=== PATIENT | male | born 1990 ===

== ENCOUNTER 2016-10-04 10:56 | Observation (INO) | payer MEDICAID ==
[2016-10-04 11:03] VITALS: BMI 20.3
[2016-10-04] MEDS ORDERED: Iohexol 240 (50 ml) PO ONE (11:30)
[2016-10-04] MEDS ORDERED: Sodium Chloride 0.9% 1,000 ML IV STA (11:30)
--- NOTE | 2016-10-04 11:35 | ED PDOC ---
HPI: Abdomen Time Seen by Provider: 10/04/16 11:11 Chief Complaint (Nursing): Abdominal Pain Chief Complaint (Provider): Abd pain History Per: Patient History/Exam Limitations: no limitations Onset/Duration Of Symptoms: Days (Today) Outside of [place] travel?: No Additional Complaint(s): RLQ pain on going since today morning. No back or testicular pain. No nausea, vomit, diarrhea. No weakness, headaches, chest pain. No dizziness. No dysuria. No new food or drinks. Past Medical History Reviewed: Nursing Documentation, Vital Signs Vital Signs: Last Vital Signs Temp 98.1 F 10/04/16 11:01 Pulse 94 H 10/04/16 11:01 Resp 20 10/04/16 11:01 BP 140/95 H 10/04/16 11:01 Pulse Ox 100 10/04/16 11:37 - Medical History PMH: No Chronic Diseases - Surgical History Surgical History: No Surg Hx - Family History Family History: States: Unknown Family Hx - Living Arrangements Living Arrangements: With Family - Social History Alcohol: None Drugs: Denies - Allergies Allergies/Adverse Reactions: Allergies Allergy/AdvReac Type Severity Reaction Status Date / Time No Known Allergies Allergy Verified 05/09/15 17:58 Review of Systems ROS Statement: Except As Marked, All Systems Reviewed And Found Negative Gastrointestinal: Positive for: Abdominal Pain Physical Exam - Reviewed Nursing Documentation Reviewed: Yes Vital Signs Reviewed: Yes - Physical Exam Appears: Positive for: Non-toxic, No Acute Distress Head Exam: Positive for: ATRAUMATIC, NORMAL INSPECTION, NORMOCEPHALIC Skin: Positive for: Normal Color, Warm, DRY Eye Exam: Positive for: EOMI, Normal appearance, PERRL ENT: Positive for: Normal ENT Inspection Neck: Positive for: Normal, Painless ROM Cardiovascular/Chest: Positive for: Regular Rate, Rhythm Respiratory: Positive for: CNT, Normal Breath Sounds Gastrointestinal/Abdominal: Positive for: Bowel Sounds, Soft, Tenderness (RLQ) Back: Positive for: Normal Inspection. Negative for: L CVA Tenderness, R CVA Tenderness Extremity: Positive for: Normal ROM. Negative for: Tenderness, Pedal Edema Neurologic/Psych: Positive for: Alert, Oriented - Laboratory Results Result Diagrams: 10/04/16 12:10 10/04/16 12:10 Interpretation Of Abn Labs: no acute Urine dip results: Negative for: Leukocyte Esterase, Nitrate - ECG O2 Sat by Pulse Oximetry: 100 Pulse Ox Interpretation: Normal - CT Scan/US ct Other Rad Studies (CT/US): Read By Radiologist Other Rad Interpretation: no acute ED OBSERVATION Discharge: Yes Date of observation admission: 10/04/16 Time of observation admission: 11:36 - Observation admission statement Patient is being placed in observation because:: abd pain - Goals of Observation Goals of observation are:: further eval for pain - Progress Note Progress Note: 10/04/16 17:26 Feels better. AAOx3. Pain free. Tolerated PO. FU with pcp. Disposition - Clinical Impression Clinical Impression: Abdominal pain - Patient ED Disposition Is Patient to be Admitted: No Counseled Patient/Family Regarding: Studies Performed, Diagnosis, Need For Followup, Rx Given - Disposition Disposition: Routine/Home Disposition Time: 17:26 Condition: STABLE
[2016-10-04 12:19] LABS: BASO % 0.3 % (0.0-2.0); EOS % 0.1 % (0.0-4.0); HEMOGLOBIN 15.7 g/dL (12.0-18.0); LYMPH # 1.4 K/uL (1.0-4.3); LYMPH % 12.7 % (20.0-40.0); MEAN CELL VOLUME 93.6 fl (80.0-94.0); MEAN CORPUSCULAR HEMOGLOBIN 32.3 pg (27.0-31.0); MEAN CORPUSCULAR HGB CONC 34.5 g/dL (33.0-37.0); MEAN PLATELET VOLUME 9.2 fl (7.2-11.7); MONO # 0.5 K/uL (0.0-0.8); MONO % 4.9 % (0.0-10.0); NEUT # 8.9 K/uL (1.8-7.0); NRBC % 0.2 % (0.0-0.0); RBC 4.85 Mil/uL (4.40-5.90); WHITE BLOOD COUNT 10.9 K/uL (4.8-10.8)
[2016-10-04 12:30] LABS: ALB/GLOB RATIO 1.5 (1.0-2.1); ALBUMIN 4.8 g/dL (3.5-5.0); ALT/SGPT 48 U/L (21-72); AST/SGOT 28 U/L (17-59); BLOOD UREA NITROGEN 16 mg/dl (9-20); CALCIUM 9.9 mg/dL (8.4-10.2); GFR AFRICAN-AMERICAN > 60; GFR NON-AFRICAN AMERICAN > 60; LIPASE 166 U/L (23-300)
[2016-10-04] MEDS ORDERED: Iohexol 300 100 ML IJ ONE (15:06)
[2016-10-04] MEDS ORDERED: Sodium Chloride 0.9% 50 ML IV ONE (15:07)
--- NOTE | 2016-10-04 17:18 | CT ---
PROCEDURE: CT Abdomen and Pelvis with contrast HISTORY: Abdominal pain and nausea. COMPARISON: None. TECHNIQUE: Contrast dose: Print Radiation dose: Total exam DLP = mGy-cm. This CT exam was performed using one or more of the following dose reduction techniques: Automated exposure control, adjustment of the mA and/or kV according to patient size, and/or use of iterative reconstruction technique. FINDINGS: LOWER THORAX: Unremarkable. LIVER: Unremarkable. No gross lesion or ductal dilatation. GALLBLADDER AND BILE DUCTS: Unremarkable. PANCREAS: Unremarkable. No gross lesion or ductal dilatation. SPLEEN: Unremarkable. ADRENALS: Unremarkable. No mass. KIDNEYS AND URETERS: Right kidney and right ureter: Unremarkable. No hydronephrosis. No solid mass. Left kidney in ureter: Moderately dilated left collecting system and left ureter in its entirety. Findings are nonspecific but may be related to ectopic ureterocele a normal variant. There is no obstructing lesion in the ureter. The urinary bladder is within normal limits. VASCULATURE: Unremarkable. No aortic aneurysm. BOWEL: Unremarkable. No obstruction. No gross mural thickening. APPENDIX: Normal appendix. PERITONEUM: Unremarkable. No free fluid. No free air. LYMPH NODES: Unremarkable. No enlarged lymph nodes. BLADDER: Unremarkable. REPRODUCTIVE: Unremarkable. BONES: No acute fracture. OTHER FINDINGS: None. IMPRESSION: No acute findings related to/accounting for the clinical presentation. Additional benign and/or incidental findings described above.
[2016-10-04 17:45] VITALS: BP 138/79; PULSE 78; RESP 16; TEMP 98; O2SAT 99
== END 2016-10-04 17:27 | disposition home or self-care (01) ==
LOC: H.ER 10:56 → H.EROBSV 11:30
PROVIDERS: ADMIT Emergency Medicine; ATTEND Emergency Medicine
DX: R10.31 Right lower quadrant pain (principal)

== ENCOUNTER 2017-04-10 12:08 | Emergency (ER) | payer MEDICAID ==
[2017-04-10 12:08] VITALS: BMI 20.3
[2017-04-10 12:41] VITALS: RESP 18
--- NOTE | 2017-04-10 13:42 | ED PDOC ---
HPI: General Adult Time Seen by Provider: 04/10/17 13:40 Chief Complaint (Nursing): Flu-like Symptoms Chief Complaint (Provider): bodyaches History Per: Patient (26 y/o male here with bodyaches/headache noted today. Notes chills but no cough. No new medications. Patient notes sore throat yesterday.) Past Medical History Reviewed: Historical Data, Nursing Documentation, Vital Signs Vital Signs: Last Vital Signs Temp 98.6 F 04/10/17 12:39 Pulse 111 H 04/10/17 12:39 Resp 18 04/10/17 12:39 BP 130/83 04/10/17 12:39 Pulse Ox 99 04/10/17 13:44 - Family History Family History: States: Unknown Family Hx - Home Medications Home Medications: Ambulatory Orders Medication Instructions Recorded Ibuprofen [Motrin] 600 mg PO TID 7 Days tab 10/04/16 Acetaminophen [Acetaminophen Extra 2 tab PO Q6 PRN #24 tablet 04/10/17 Strength] Ibuprofen [Motrin Tab] 800 mg PO Q8 PRN #21 tab 04/10/17 - Allergies Allergies/Adverse Reactions: Allergies Allergy/AdvReac Type Severity Reaction Status Date / Time No Known Allergies Allergy Verified 04/10/17 12:38 Review of Systems ROS Statement: Except As Marked, All Systems Reviewed And Found Negative Musculoskeletal: Positive for: Other (bodyaches/headache) Physical Exam - Reviewed Nursing Documentation Reviewed: Yes Vital Signs Reviewed: Yes - Physical Exam Appears: Positive for: Well, Non-toxic, No Acute Distress Head Exam: Positive for: ATRAUMATIC, NORMAL INSPECTION, NORMOCEPHALIC Skin: Positive for: Normal Color, Warm, DRY Eye Exam: Positive for: EOMI, Normal appearance, PERRL ENT: Positive for: Normal ENT Inspection Neck: Positive for: Normal, Painless ROM Cardiovascular/Chest: Positive for: Regular Rate, Rhythm Respiratory: Positive for: CNT, Normal Breath Sounds Gastrointestinal/Abdominal: Positive for: Normal Exam, Bowel Sounds, Soft Back: Positive for: Normal Inspection Extremity: Positive for: Normal ROM Neurologic/Psych: Positive for: Alert, Oriented - ECG O2 Sat by Pulse Oximetry: 99 - Progress ED Course And Treament: tamiflu 75mg x1 dose RAPID STREP: NEG Disposition - Clinical Impression Clinical Impression: Influenza-like symptoms - Patient ED Disposition Is Patient to be Admitted: No - Disposition Referrals: [facility] [Outside] Disposition: Routine/Home Disposition Time: 14:48 Condition: FAIR Prescriptions: Acetaminophen [Acetaminophen Extra Strength] 2 tab PO Q6 PRN #24 tablet PRN Reason: Pain, Moderate (4-7) Ibuprofen [Motrin Tab] 800 mg PO Q8 PRN #21 tab PRN Reason: Pain, Moderate (4-7) Instructions: Flu, Adult (DC) Forms: [employer] [employer] [facility] (K[place]i), [facility] ED School/Work Excuse
[2017-04-10 15:13] VITALS: BP 131/88; PULSE 92; TEMP 98.8; O2SAT 97
== END 2017-04-10 15:14 | disposition home or self-care (01) ==
LOC: H.ER 12:08
DX: J11.1 Influenza due to unidentified influenza virus with other respiratory manifestations (principal)

== ENCOUNTER 2017-04-12 12:51 | Emergency (ER) | payer MEDICAID ==
[2017-04-12 12:51] VITALS: BMI 20.3
[2017-04-12] MEDS ORDERED: Sodium Chloride 0.9% 1,000 ML IV SCH (13:30)
--- NOTE | 2017-04-12 13:55 | RAD ---
PROCEDURE: CHEST RADIOGRAPH, 1 VIEW HISTORY: ROUTINE COMPARISON: None available. FINDINGS: LUNGS: The lungs are well inflated and clear. PLEURA: No pneumothorax or pleural fluid seen. CARDIOVASCULAR: Normal. OSSEOUS STRUCTURES: No significant abnormalities. VISUALIZED UPPER ABDOMEN: Normal. OTHER FINDINGS: None. IMPRESSION: No active pulmonary disease.
[2017-04-12 14:02] LABS: ALB/GLOB RATIO 1.3 (1.0-2.1); ALBUMIN 4.4 g/dL (3.5-5.0); ALT/SGPT 48 U/L (21-72); AST/SGOT 28 U/L (17-59); BLOOD UREA NITROGEN 9 mg/dl (9-20); GFR AFRICAN-AMERICAN > 60; GFR NON-AFRICAN AMERICAN > 60; MAGNESIUM 1.7 MG/DL (1.6-2.3)
[2017-04-12 14:29] LABS: BASO % 0.5 % (0.0-2.0); EOS % 0.5 % (0.0-4.0); HEMOGLOBIN 15.2 g/dL (12.0-18.0); LYMPH # 1.4 K/uL (1.0-4.3); LYMPH % 19.6 % (20.0-40.0); MEAN CELL VOLUME 91.7 fl (80.0-94.0); MEAN CORPUSCULAR HEMOGLOBIN 32.4 pg (27.0-31.0); MEAN CORPUSCULAR HGB CONC 35.4 g/dL (33.0-37.0); MEAN PLATELET VOLUME 8.7 fl (7.2-11.7); MONO # 0.6 K/uL (0.0-0.8); MONO % 8.4 % (0.0-10.0); NEUT # 4.9 K/uL (1.8-7.0); NRBC % 0.1 % (0.0-0.0); RBC 4.7 Mil/uL (4.40-5.90); RED CELL DISTRIBUTION WIDTH 11.9 % (11.5-14.5); WHITE BLOOD COUNT 6.9 K/uL (4.8-10.8)
--- NOTE | 2017-04-12 14:34 | ED PDOC ---
Syncope/Near Syncope/Dizziness Time Seen by Provider: 04/12/17 13:25 Chief Complaint (Nursing): Weakness/Neurological Deficit Chief Complaint (Provider): weakness History Per: Patient (26 y/o male here for evaluation of generalized weakness noted x 2 days. Noted chills initially and was started on tamiflu in ED for presumptive flu. rapid strep at that time neg. Notes weakness associated with near syncope today. Has had 2 watery stools today. Family concerned as patien has h/o febrile seizures at age 11 and syncope at age 21. Has not had evaluation after these events with neurology. No vomiting/chest pain.), Family Past Medical History Reviewed: Historical Data, Nursing Documentation, Vital Signs Vital Signs: Last Vital Signs Temp 97.0 F L 04/12/17 12:55 Pulse 84 04/12/17 12:55 Resp 16 04/12/17 12:55 BP 153/110 H 04/12/17 12:55 Pulse Ox 100 04/12/17 12:55 - Family History Family History: States: Unknown Family Hx - Home Medications Home Medications: Ambulatory Orders Medication Instructions Recorded Ibuprofen [Motrin] 600 mg PO TID 7 Days tab 10/04/16 Acetaminophen [Acetaminophen Extra 2 tab PO Q6 PRN #24 tablet 04/10/17 Strength] Ibuprofen [Motrin Tab] 800 mg PO Q8 PRN #21 tab 04/10/17 Oseltamivir [Tamiflu] 75 mg PO BID #9 cap 04/10/17 - Allergies Allergies/Adverse Reactions: Allergies Allergy/AdvReac Type Severity Reaction Status Date / Time No Known Allergies Allergy Verified 04/12/17 12:55 Review of Systems ROS Statement: Except As Marked, All Systems Reviewed And Found Negative Physical Exam - Reviewed Nursing Documentation Reviewed: Yes Vital Signs Reviewed: Yes - Physical Exam Appears: Positive for: Well, Non-toxic, No Acute Distress Head Exam: Positive for: ATRAUMATIC, NORMAL INSPECTION, NORMOCEPHALIC Skin: Positive for: Normal Color, Warm, DRY Eye Exam: Positive for: EOMI, Normal appearance, PERRL ENT: Positive for: Normal ENT Inspection Neck: Positive for: Normal, Painless ROM Cardiovascular/Chest: Positive for: Regular Rate, Rhythm Respiratory: Positive for: CNT, Normal Breath Sounds Gastrointestinal/Abdominal: Positive for: Normal Exam, Bowel Sounds, Soft Back: Positive for: Normal Inspection Extremity: Positive for: Normal ROM Neurologic/Psych: Positive for: Alert, Oriented - Laboratory Results Result Diagrams: 04/12/17 13:45 04/12/17 13:45 - ECG O2 Sat by Pulse Oximetry: 100 - Progress ED Course And Treament: orthostatics reviewed. Not orthostatic. EKG: nsr 76 bpm; no ectopy ;no acute changes changes influenza a/b negative d/w Dr. Dickson. Re-evaluated by him Will hydrate/head ct/ and re-evaluate. HEAD CT: NAD CXR: NAD Disposition - Clinical Impression Clinical Impression: Weakness - Patient ED Disposition Is Patient to be Admitted: No - Disposition Referrals: [facility] [Outside] Disposition: Routine/Home Disposition Time: 16:46 Condition: FAIR Instructions: Weakness (ED), Near Fainting, Viral Syndrome (DC) Forms: [facility] (Albanian), [facility] ED School/Work Excuse
--- NOTE | 2017-04-12 15:46 | CT ---
PROCEDURE: CT HEAD WITHOUT CONTRAST. HISTORY: near syncope COMPARISON: None available. TECHNIQUE: Axial computed tomography images were obtained through the head/brain without intravenous contrast. Radiation dose: Total exam DLP = 880.7 mGy-cm. This CT exam was performed using one or more of the following dose reduction techniques: Automated exposure control, adjustment of the mA and/or kV according to patient size, and/or use of iterative reconstruction technique. FINDINGS: HEMORRHAGE: No intracranial hemorrhage. BRAIN: No mass effect or edema. No atrophy or chronic microvascular ischemic changes. VENTRICLES: Unremarkable. No hydrocephalus. CALVARIUM: Unremarkable. PARANASAL SINUSES: Unremarkable as visualized. No significant inflammatory changes. MASTOID AIR CELLS: Unremarkable as visualized. No inflammatory changes. OTHER FINDINGS: None. IMPRESSION: Normal CT of the Head.
[2017-04-12 17:31] VITALS: BP 130/80; PULSE 78; RESP 19; TEMP 97; O2SAT 98
--- NOTE | 2017-04-13 23:49 | CARD ---
APPROVED REPORT EKG Measurement Heart [id number] AL [id number] <Conclusion> Normal sinus rhythm Possible Left atrial enlargement Borderline ECG
== END 2017-04-12 17:36 | disposition home or self-care (01) ==
LOC: H.ER 12:51
DX: R53.1 Weakness (principal)
CPT/HCPCS: 70450; 71045; 80053; 82550; 83735; 84484; 85025; 87804; 93005; 99284; J7040

== ENCOUNTER 2017-05-10 02:19 | Emergency (ER) | payer MEDICAID ==
[2017-05-10 02:20] VITALS: BMI 20.3
[2017-05-10 02:37] VITALS: TEMP 98.5
[2017-05-10] MEDS ORDERED: Sodium Chloride 0.9% 1,000 ML IV STA (03:02)
--- NOTE | 2017-05-10 03:05 | ED PDOC ---
HPI: Hypertension/Hypotension Time Seen by Provider: 05/10/17 02:44 Chief Complaint (Nursing): Palpitations Chief Complaint (Provider): palpitations History Per: Patient History/Exam Limitations: no limitations Onset/Duration Of Symptoms: Hrs (1) Current Symptoms Are (Timing): Better Quality Of Symptoms: Rapid Heart Rate Additional Complaint(s): 26 y/o male presents for evaluation of palpitations, onset one hour prior to arrival. Patient states he was in bed trying to fall asleep and felt like he was "thinking a lot" when he started to notice his heart beating fast. Denies fever, headache, dizziness, chest pain, shortness of breath, leg pain/swelling, recent travel, drug/caffeine use. Patient states symptoms improving upon arrival, just want to "get his heart checked out". Past Medical History Reviewed: Historical Data, Nursing Documentation, Vital Signs Vital Signs: Last Vital Signs Temp 98.5 F 05/10/17 02:34 Pulse 88 05/10/17 02:50 Resp 21 05/10/17 02:50 BP 121/80 05/10/17 02:50 Pulse Ox 99 05/10/17 02:50 - Medical History PMH: No Chronic Diseases - Surgical History Surgical History: No Surg Hx - Family History Family History: States: Unknown Family Hx - Living Arrangements Living Arrangements: With Family - Social History Current smoker - smoking cessation education provided: No Alcohol: Occasional Drugs: Denies - Home Medications Home Medications: Ambulatory Orders Medication Instructions Recorded Ibuprofen [Motrin] 600 mg PO TID 7 Days tab 10/04/16 Acetaminophen [Acetaminophen Extra 2 tab PO Q6 PRN #24 tablet 04/10/17 Strength] Ibuprofen [Motrin Tab] 800 mg PO Q8 PRN #21 tab 04/10/17 Oseltamivir [Tamiflu] 75 mg PO BID #9 cap 04/10/17 - Allergies Allergies/Adverse Reactions: Allergies Allergy/AdvReac Type Severity Reaction Status Date / Time No Known Allergies Allergy Verified 05/10/17 02:33 Review of Systems ROS Statement: Except As Marked, All Systems Reviewed And Found Negative Cardiovascular: Positive for: Palpitations Physical Exam - Reviewed Nursing Documentation Reviewed: Yes Vital Signs Reviewed: Yes - Physical Exam Appears: Positive for: Well, Non-toxic, No Acute Distress Head Exam: Positive for: ATRAUMATIC, NORMAL INSPECTION, NORMOCEPHALIC Skin: Positive for: Normal Color Eye Exam: Positive for: Normal appearance ENT: Positive for: Normal ENT Inspection Cardiovascular/Chest: Positive for: Regular Rate, Rhythm Respiratory: Positive for: Normal Breath Sounds Gastrointestinal/Abdominal: Positive for: Normal Exam Back: Positive for: Normal Inspection Extremity: Positive for: Normal ROM Neurologic/Psych: Positive for: Alert, Oriented - Laboratory Results Result Diagrams: 05/10/17 03:21 05/10/17 03:21 - ECG ECG: Positive for: Viewed By Me (reviewed by ED atttending) ECG Rhythm: Positive for: Sinus Rhythm O2 Sat by Pulse Oximetry: 99 - Progress ED Course And Treament: labs, ekg, IV fluids On re-eval, patient resting comfortably; states symptoms resolved. Patient educated on findings, discharged with instructions to follow up PMD 2-3 days. Return precautions given. Disposition - Clinical Impression Clinical Impression: Palpitations - Patient ED Disposition Is Patient to be Admitted: No Counseled Patient/Family Regarding: Studies Performed, Diagnosis, Need For Followup - Disposition Referrals: Radha Leo MD [Primary Care Provider] - Disposition: Routine/Home Disposition Time: 04:41 Condition: IMPROVED Instructions: Palpitations Forms: [facility] [employer] (Russian)
[2017-05-10 03:23] LABS: BASO % 0.6 % (0.0-2.0); EOS % 0.5 % (0.0-4.0); HEMOGLOBIN 14.4 g/dL (12.0-18.0); LYMPH # 1.2 K/uL (1.0-4.3); LYMPH % 13.8 % (20.0-40.0); MEAN CELL VOLUME 92.3 fl (80.0-94.0); MEAN CORPUSCULAR HEMOGLOBIN 32.4 pg (27.0-31.0); MEAN CORPUSCULAR HGB CONC 35.1 g/dL (33.0-37.0); MONO # 0.6 K/uL (0.0-0.8); NEUT # 6.5 K/uL (1.8-7.0); NEUT % 78.1 % (50.0-75.0); NRBC % 0.1 % (0.0-0.0); RBC 4.46 Mil/uL (4.40-5.90); WHITE BLOOD COUNT 8.4 K/uL (4.8-10.8)
[2017-05-10 03:50] LABS: BARBITURATES, UR NEGATIVE (NEGATIVE); BENZODIAZEPINES, UR NEGATIVE (NEGATIVE); OPIATES, UR NEGATIVE (NEGATIVE); PHENCYCLIDINE, UR NEGATIVE (NEGATIVE)
[2017-05-10 03:50] LABS: ALB/GLOB RATIO 1.4 (1.0-2.1); ALBUMIN 4.4 g/dL (3.5-5.0); ALT/SGPT 40 U/L (21-72); AST/SGOT 27 U/L (17-59); BLOOD UREA NITROGEN 19 mg/dl (9-20); CALCIUM 9.2 mg/dL (8.4-10.2); GFR AFRICAN-AMERICAN > 60; GFR NON-AFRICAN AMERICAN > 60
[2017-05-10 04:49] VITALS: BP 139/84; PULSE 83; RESP 19; O2SAT 97
== END 2017-05-10 05:00 | disposition home or self-care (01) ==
LOC: H.ER 02:19
DX: R00.2 Palpitations (principal); I10 Essential (primary) hypertension
CPT/HCPCS: 80053; 80324; 80345; 80346; 80349; 80353; 80358; 80361; 83992; 84443; 85025; 99284; J7040

== ENCOUNTER 2017-09-11 13:48 | Emergency (ER) | payer MEDICAID ==
[2017-09-11 13:49] VITALS: BMI 20.3
[2017-09-11 14:04] VITALS: BP 116/80; PULSE 78; RESP 18; TEMP 98; O2SAT 100
--- NOTE | 2017-09-11 14:36 | ED PDOC ---
HPI: Male Pain Time Seen by Provider: 09/11/17 14:11 Chief Complaint (Nursing): Male Genitourinary Chief Complaint (Provider): Male Genitourinary History Per: Patient History/Exam Limitations: no limitations Onset/Duration Of Symptoms: Days Current Symptoms Are (Timing): Still Present Quality Of Discomfort: Pressure Associated Symptoms: Urinary Symptoms Additional Complaint(s): 27 y/o male with no significant PMHx presents to the ED complaining of urinary frequency associated with lower abdominal pressure. Patient also reports of urine residual after urination. Denies back pain, nausea, vomiting, STDs, and rectal bleeding or pain. Pt denies nay concern for STIs. denies any history of unprotected sex. No penile discharge or lesions. PMD: None Provided Past Medical History Reviewed: Historical Data, Nursing Documentation, Vital Signs Vital Signs: Last Vital Signs Temp 98 F 09/11/17 14:01 Pulse 78 09/11/17 14:01 Resp 18 09/11/17 14:01 BP 116/80 09/11/17 14:01 Pulse Ox 100 09/11/17 14:01 - Medical History PMH: No Chronic Diseases - Surgical History Surgical History: No Surg Hx - Family History Family History: States: Unknown Family Hx - Home Medications Home Medications: Ambulatory Orders Medication Instructions Recorded Ibuprofen [Motrin] 600 mg PO TID 7 Days tab 10/04/16 Acetaminophen [Acetaminophen Extra 2 tab PO Q6 PRN #24 tablet 04/10/17 Strength] Ibuprofen [Motrin Tab] 800 mg PO Q8 PRN #21 tab 04/10/17 Oseltamivir [Tamiflu] 75 mg PO BID #9 cap 04/10/17 Doxycycline Hyclate 100 mg PO BID #10 capsule 09/11/17 Phenazopyridine HCl [Pyridium] 100 mg PO TID #6 tab 09/11/17 - Allergies Allergies/Adverse Reactions: Allergies Allergy/AdvReac Type Severity Reaction Status Date / Time No Known Allergies Allergy Verified 09/11/17 14:01 Review of Systems ROS Statement: Except As Marked, All Systems Reviewed And Found Negative Gastrointestinal: Positive for: Abdominal Pain (lower) Genitourinary Male: Positive for: Frequency Physical Exam - Reviewed Nursing Documentation Reviewed: Yes Vital Signs Reviewed: Yes - Physical Exam Appears: Positive for: No Acute Distress Head Exam: Positive for: ATRAUMATIC, NORMOCEPHALIC Skin: Positive for: Normal Color, Warm, Dry Eye Exam: Positive for: Normal appearance, EOMI, PERRL Neck: Positive for: Normal, Painless ROM Cardiovascular/Chest: Positive for: Regular Rate, Rhythm Respiratory: Positive for: Normal Breath Sounds. Negative for: Respiratory Distress Gastrointestinal/Abdominal: Positive for: Normal Exam, Soft. Negative for: Tenderness Male Genital Exam: Positive for: other (deferred) Extremity: Positive for: Normal ROM. Negative for: Deformity Neurologic/Psych: Positive for: Alert, Oriented (x3). Negative for: Motor/ Sensory Deficits - ECG O2 Sat by Pulse Oximetry: 100 (RA) Pulse Ox Interpretation: Normal Medical Decision Making Medical Decision Making: Time: 1416 Plan: -- ED Urine dipstick -- Chlamydia/GC RN, TMA -- Urinalysis Dip (-) nites, leuks or blood. Pt educated on results and advised that he will be treated fro clinical UTI. Advised to follow up with PMD, return to ED with any concerns. Scribe Attestation: Documented by Audrey Acosta, acting as a scribe for Lianna Valle PA-C. Provider Scribe Attestation: All medical record entries made by the Scribe were at my direction and personally dictated by me. I have reviewed the chart and agree that the record accurately reflects my personal performance of the history, physical exam, medical decision making, and the department course for this patient. I have also personally directed, reviewed, and agree with the discharge instructions and disposition. Disposition - Clinical Impression Clinical Impression: Urinary frequency - Patient ED Disposition Is Patient to be Admitted: No - Disposition Disposition: Routine/Home Disposition Time: 15:22 Condition: STABLE Prescriptions: Doxycycline Hyclate 100 mg PO BID #10 capsule Phenazopyridine HCl [Pyridium] 100 mg PO TID #6 tab Instructions: Urinary Tract Infection, Adult (DC) Forms: [employer] (Greenlandic) - POA Present On Arrival: None
[2017-09-11 14:43] LABS: SQUAMOUS EPITHIAL < 1 /hpf (0-5); URINE BILIRUBIN NEGATIVE (NEGATIVE); URINE BLOOD NEGATIVE (NEGATIVE); URINE CLARITY CLEAR (Clear); URINE COLOR YELLOW (YELLOW); URINE GLUCOSE (UA) NEG (Normal); URINE LEUKOCYTE ESTERASE NEG Leu/uL (Negative); URINE PROTEIN NEGATIVE (NEGATIVE); URINE UROBILINOGEN 0.2-1.0 mg/dL (0.2-1.0)
== END 2017-09-11 15:33 | disposition home or self-care (01) ==
LOC: H.ER 13:48
DX: N39.0 Urinary tract infection, site not specified (principal)

== ENCOUNTER 2018-01-10 14:21 | Emergency (ER) | payer MEDICAID ==
[2018-01-10 14:21] VITALS: BMI 20.3
[2018-01-10 14:36] VITALS: BP 131/89; PULSE 97; RESP 18; TEMP 98.5; O2SAT 99
[2018-01-10] MEDS ORDERED: Sodium Chloride 0.9% 1,000 ML IV SCH (14:45)
--- NOTE | 2018-01-10 14:55 | ED PDOC ---
HPI:STROKE - Time Time: 14:30 - Historian Historian: Patient - Chief Complaint Chief Complaint: other (headache and left sided facial & neck tingling) - Onset Date: 01/10/18 Time: 12:00 Onset: Hours - Timing Timing: Currently Symptomatic - Location Location: None - Associated Symptoms Associated symptoms:: Headache - Notes: Notes:: Mendoza Vargas Jr is a 27 year old male, with no significant past medical history, who presents to the emergency department complaining of a mild headache and a tingling sensation to left side of face and neck onset since noon today. Patient states its not the worst headache of his life and denies similar symptoms in the past. Patient further states symptoms started after he took off his wave cap. He did not take any medication for symptoms. He denies any weakness, arm or leg numbness, vision or speech changes, chest pain, shortness of breath, nausea, vomit, diarrhea, abdominal pain, dizziness or head injuries. No tongue or lip numbness, no further medical complaints. PMD: None provided. NIHSS Stroke Scale - Date/Time Evaluation Performed Date Performed: 01/10/18 Time Performed: 14:35 - How Severe is the Stroke Level of Consciousness: 0=Alert LOC to Questions: 0=Both comments correct LOC to commands: 0=Obeys both correctly Best Gaze: 0=Normal Visual: 0=No visual loss Facial: 0=Normal Motor Arm - Left: 0=No drift Motor Arm - Right: 0=No drift Motor Leg - Left: 0=No drift Motor Leg - Right: 0=No drift Limb Ataxia: 0=Absent Sensory: 0=Normal Best Language: 0=No aphasia Dysarthia: 0=Normal articulation Extinction & Inattention (Neglect): 0=Normal, no object Score: 0 rTPA Inclusion/Exclusion - Refusal of Treatment Patient Refused Treatment: No - Inclusion Criteria for Altepase Patient is 18 years or Older: Yes The Clinical Diagnosis of Ischemic Stroke That is Causing a Potentially Disabling Neurological Deficit: No Time of Onset is Well Established to be Less Than 270 Minute Before Treatment Would Begin: Yes Risk/Benefit Discussed With Patient/Family Member Present: No Past Medical History Reviewed: Historical Data, Nursing Documentation, Vital Signs Vital Signs: Last Vital Signs Temp 98.5 F 01/10/18 14:36 Pulse 97 H 01/10/18 14:36 Resp 18 01/10/18 14:36 BP 131/89 01/10/18 14:36 Pulse Ox 99 01/10/18 14:36 - Medical History PMH: No Chronic Diseases - Surgical History Surgical History: No Surg Hx - Family History Family History: States: Unknown Family Hx - Home Medications Home Medications: Ambulatory Orders Medication Instructions Recorded Ibuprofen [Motrin] 600 mg PO TID 7 Days tab 10/04/16 Acetaminophen [Acetaminophen Extra 2 tab PO Q6 PRN #24 tablet 04/10/17 Strength] Ibuprofen [Motrin Tab] 800 mg PO Q8 PRN #21 tab 04/10/17 Oseltamivir [Tamiflu] 75 mg PO BID #9 cap 04/10/17 Doxycycline Hyclate 100 mg PO BID #10 capsule 09/11/17 Phenazopyridine HCl [Pyridium] 100 mg PO TID #6 tab 09/11/17 - Allergies Allergies/Adverse Reactions: Allergies Allergy/AdvReac Type Severity Reaction Status Date / Time No Known Allergies Allergy Verified 01/10/18 14:36 Review of Systems ROS Statement: Except As Marked, All Systems Reviewed And Found Negative Eyes: Negative for: Vision Change Cardiovascular: Negative for: Chest Pain Respiratory: Negative for: Shortness of Breath Gastrointestinal: Negative for: Nausea, Vomiting, Abdominal Pain, Diarrhea Neurological: Positive for: Headache (mild), Other (tingling sensation to left side of face and neck). Negative for: Weakness, Numbness, Dizziness Physical Exam - Reviewed Nursing Documentation Reviewed: Yes Vital Signs Reviewed: Yes - Physical Exam Appears: Positive for: No Acute Distress Head Exam: Positive for: ATRAUMATIC, NORMAL INSPECTION, NORMOCEPHALIC Skin: Positive for: Normal Color, Warm, Dry Eye Exam: Positive for: Normal appearance, EOMI, PERRL ENT: Positive for: Normal ENT Inspection Neck: Positive for: Normal, Painless ROM Cardiovascular/Chest: Positive for: Regular Rate, Rhythm. Negative for: Murmur Respiratory: Positive for: Normal Breath Sounds. Negative for: Respiratory Distress Gastrointestinal/Abdominal: Positive for: Normal Exam, Soft. Negative for: Tenderness, Guarding, Rebound Back: Positive for: Normal Inspection. Negative for: L CVA Tenderness, R CVA Tenderness, Vertebral Tenderness Extremity: Positive for: Normal ROM (upper and lower extremities). Negative for: Deformity, Swelling Neurologic/Psych: Positive for: Alert, airplane navigator II-XII (intact), Oriented (x3), Cerebellar Tests (normal), Gait (steady). Negative for: Motor/Sensory Deficits, Aphasia, Facial Droop - Laboratory Results Result Diagrams: 01/10/18 14:25 01/10/18 14:25 Interpretation Of Abn Labs: no acute - ECG ECG: Positive for: Interpreted By Me, Viewed By Me ECG Rhythm: Positive for: Normal QRS, Normal ST Segment, Sinus Rhythm O2 Sat by Pulse Oximetry: 99 (RA) Pulse Ox Interpretation: Normal - Radiology X-Ray: Interpreted by Me, Viewed By Me X-Ray Interpretation: No Acute Disease - CT Scan/US head Other Rad Studies (CT/US): Read By Radiologist Other Rad Interpretation: no acute - Progress ED Course And Treament: 1541: Pt. with no symptoms currently. AAOx3. Tolerated PO. No tingles/ numbness, headaches. Likely paresthesias and mild headache. No neck pain at anytime. Fu with pcp. Medical Decision Making Medical Decision Making: Time: 14:35 Initial Impression: headache Initial Plan: --Type and screen --Head w/o contrast [CT] --EKG --CMP --Hemoglobin A1C --Lipid Panel --Troponin I --CBC w/ differential --PTT --PT --Chest portable [RAD] --Sodium Chloride 1,000 ml IV 100 mls/hr --Reglan 10 mg IV --Reevaluation ------- Scribe Attestation: Documented by Reji Santa, acting as a scribe for Casa Jules MD Provider Scribe Attestation: All medical record entries made by the Scribe were at my direction and personally dictated by me. I have reviewed the chart and agree that the record accurately reflects my personal performance of the history, physical exam, medical decision making, and the department course for this patient. I have also personally directed, reviewed, and agree with the discharge instructions and disposition. Disposition - Clinical Impression Clinical Impression: Headache, Paresthesia - Patient ED Disposition Is Patient to be Admitted: No Counseled Patient/Family Regarding: Studies Performed, Diagnosis, Need For Followup - Disposition Referrals: [facility] [Outside] - 01/11/18 Disposition: Routine/Home Disposition Time: 15:43 Condition: STABLE Additional Instructions: Return if not better in 3 days. Instructions: Headache, Adult, Paresthesias (DC) Forms: [facility] (Urdu), [employer] ED School/Work Excuse
[2018-01-10 15:10] LABS: INR 1.2
[2018-01-10 15:12] LABS: PARTIAL THROMBOPLASTIN TIME 34.7 Seconds (25.6-37.1)
[2018-01-10 15:13] LABS: ALB/GLOB RATIO 1.4 (1.0-2.1); ALT/SGPT 37 U/L (21-72); AST/SGOT 29 U/L (17-59); BASO % 0.4 % (0.0-2.0); BLOOD UREA NITROGEN 20 mg/dl (9-20); CALCIUM 9.7 mg/dL (8.4-10.2); EOS % 0.2 % (0.0-4.0); GFR NON-AFRICAN AMERICAN > 60; HDL CHOLESTEROL 44 MG/DL (30-70); HEMOGLOBIN 15.6 g/dL (12.0-18.0); LYMPH # 1.5 K/uL (1.0-4.3); LYMPH % 17.2 % (20.0-40.0); MEAN CELL VOLUME 93.9 fl (80.0-94.0); MEAN CORPUSCULAR HEMOGLOBIN 32.2 pg (27.0-31.0); MEAN CORPUSCULAR HGB CONC 34.3 g/dL (33.0-37.0); MEAN PLATELET VOLUME 9.3 fl (7.2-11.7); MONO # 0.7 K/uL (0.0-0.8); MONO % 7.4 % (0.0-10.0); NEUT # 6.7 K/uL (1.8-7.0); NEUT % 74.8 % (50.0-75.0); NRBC % 0.1 % (0.0-0.0); RBC 4.84 Mil/uL (4.40-5.90); WHITE BLOOD COUNT 8.9 K/uL (4.8-10.8)
[2018-01-10 15:24] LABS: LDL CHOLESTEROL 114 mg/dL (0-129)
--- NOTE | 2018-01-10 15:24 | CT ---
Date of service: 01/10/2018 PROCEDURE: CT HEAD WITHOUT CONTRAST. HISTORY: paresthesias COMPARISON: 04/12/2017. CT head TECHNIQUE: Axial computed tomography images were obtained through the head/brain without intravenous contrast. Supplemental Coronal and Sagittal projections created and reviewed. Radiation dose: Total exam DLP = <inf_radiation_dlp> mGy-cm. This CT exam was performed using one or more of the following dose reduction techniques: Automated exposure control, adjustment of the mA and/or kV according to patient size, and/or use of iterative reconstruction technique. FINDINGS: HEMORRHAGE: No intracranial hemorrhage. BRAIN: No mass effect or edema. No atrophy or chronic microvascular ischemic changes. VENTRICLES: Unremarkable. No hydrocephalus. CALVARIUM: Unremarkable. PARANASAL SINUSES: Unremarkable as visualized. No significant inflammatory changes. MASTOID AIR CELLS: Unremarkable as visualized. No inflammatory changes. OTHER FINDINGS: None. IMPRESSION: No acute intracranial abnormalities. No significant findings to account for the clinical presentation. No significant interval change compared to the prior examination(s).
--- NOTE | 2018-01-11 09:45 | CARD ---
APPROVED REPORT Date of service: 01/10/2018 EKG Measurement Heart [id number] <Conclusion> Normal sinus rhythm Normal Electrocardiogram
--- NOTE | 2018-01-11 11:49 | RAD ---
Date of service: 01/10/2018 HISTORY: Code Stroke COMPARISON: Chest radiograph 04/12/2017. FINDINGS: LUNGS: Somewhat diminished pulmonary volume noted bilaterally. No acute airspace disease appreciated bilaterally. PLEURA: No significant pleural effusion identified, no pneumothorax apparent. CARDIOVASCULAR: No aortic atherosclerotic calcification present. Normal cardiac size. No pulmonary vascular congestion. OSSEOUS STRUCTURES: No significant abnormalities. VISUALIZED UPPER ABDOMEN: Normal. OTHER FINDINGS: None. IMPRESSION: Diminished pulmonary volumes bilaterally. No acute infiltrate, pleural effusion or pneumothorax identified bilaterally. No acute cardiovascular changes appreciated.
== END 2018-01-10 16:03 | disposition home or self-care (01) ==
LOC: H.ER 14:21
DX: R51 Headache (principal); R20.0 Anesthesia of skin
CPT/HCPCS: 70450; 71045; 80053; 80061; 82948; 83036; 84484; 85025; 85610; 85730; 86850; 86900; 93005; 96374; 99284; J2765; J7030